=== PATIENT | male | born 1995 | race Caucasian/White ===

== ENCOUNTER 2018-11-13 14:43 | Emergency (ER) | payer OTHER, SELFPAY ==
[2018-11-13 14:53] VITALS: BP 112/68; PULSE 60; RESP 15; TEMP 36.6; O2SAT 99
--- NOTE | 2018-11-13 15:07 | ED.GENADUL_ITS ---
Discharge Plan Disposition Patient Disposition: HOME Condition: Stable Discharge Details Chief Complaint: Laceration Clinical Impression: Laceration of left index finger Primary Care Provider: None,None ED Provider: Gabriele Sierra Home Meds and New Rx's Prescriptions: No Action No Known Home Meds RF: 0 Discharge Instructions Instructions: Finger Laceration (ED) Additional Instructions: The glue and Steri-Strips will wear off in approximately 7 days time. May cover with Band-Aid. Return for fever, redness, discharge or any other acute concern Medical Decision Making 23-year-old male presents with small left index finger laceration. Irrigated, cleansed, examined in a bloodless field without evidence of foreign body. Repaired with Steri-Strips and tissue adhesive. Tetanus updated. Stable for discharge to home. HPI General Mode of arrival: ambulatory . Date/Time Provider Initiated Documentation: 11/13/18 14:46 . Limitations to Documentation: no limitations . Information obtained by: patient . History of Present Illness 23 year old M presents to the emergency department with the chief complaint of Left index finger laceration, described as mild, Quality is described as constant, and is localized to the left and upper extremity. Patient reports no radiation. Patient started experiencing this minute(s) and it has been constant. No relieving factors improve symptom(s), No exacerbating factors reported . Patient notes no other symptoms.. Related Data Home Medications Medication Instructions Recorded Confirmed Unknown [No Known Home Meds] 11/13/18 11/13/18 Allergies Allergy/AdvReac Type Severity Reaction Status Date / Time No Known Allergies Allergy Unverified 11/13/18 14:56 General Stated Complaint: Laceration ESPERANZA: 4 Review of Systems Review of Systems No numbness or tingling. Tetanus out of date. 4 systems reviewed and negative [facility] Social History Smoking/Tobacco Use Status: Never Alcohol Intake: current Alcohol Intake frequency: a few times a month Drug use: Daily Substance use type: marijuana Do you feel safe at home: Yes Do you feel safe in your relationship?: Yes Exam Narrative Exam Narrative: GEN: awake, alert, oriented 3. Pleasant, well groomed, interactive. HEAD: Normocephalic, atraumatic ENT: Mucous membranes moist, oropharynx unremarkable, External ear exam unremarkable EYES: PERRL, EOMI EXT: Full ROM, no edema, no rash. Left index finger with radial aspect proximal laceration measuring 1 cm, overlying the proximal phalanx. Normal range of motion, normal motor, normal sensation Neuro: Grossly normal neurologic exam, conversant, interactive. Psych: Speech fluent, thoughts congruent, affect normal Course Vital Signs Temperature 36.6 C 11/13/18 14:53 Pulse 60 11/13/18 14:53 Respiratory Rate 15 11/13/18 14:53 Blood Pressure 112/68 11/13/18 14:53 Pulse Oximetry 99 11/13/18 14:53 Temperature 36.6 C 11/13/18 14:53 Temperature Source Tympanic 11/13/18 14:53 Pulse 60 11/13/18 14:53 Respiratory Rate 15 11/13/18 14:53 Respiratory Effort 11/13/18 14:55 Blood Pressure 112/68 11/13/18 14:53 Blood Pressure Position Supine 11/13/18 14:53 Pulse Oximetry 99 11/13/18 14:53 Oxygen Delivery Method Room Air 11/13/18 14:53 Oxygen Flow Rate 0 11/13/18 14:53 Pain Level 2 11/13/18 14:53
== END 2018-11-13 15:20 | disposition home or self-care (01) ==
LOC: ER 15:47
PROVIDERS: Emergency Provider Emergency Medicine
DX: S61.211A Laceration without foreign body of left index finger without damage to nail, initial encounter (principal); W27.0XXA Contact with workbench tool, initial encounter
CPT/HCPCS: 12001; 90471